=== PATIENT | male | born 1970 | race Two or more races ===

== ENCOUNTER 2021-03-03 18:24 | Emergency (ER) | payer OTHER ==
[~2021-03-03] VITALS: Ht 180.3 cm; Wt 95.3 kg
[2021-03-03] MEDS ORDERED: COZAAR25 MG PO (18:35)
[2021-03-03] MEDS ORDERED: LIPITOR40 M1 PO (18:36)
== END 2021-03-03 22:42 | disposition home or self-care (01) ==
LOC: ER 18:24
DX: R11.10 Vomiting, unspecified (principal)

== ENCOUNTER 2024-04-06 13:58 | Emergency (ER) | payer OTHER ==
[~2024-04-06] VITALS: Ht 180.3 cm; Wt 94.8 kg
[~2024-04-06 13:58] MED LIST: COZAAR25 MG PO; LIPITOR40 M1 PO
[2024-04-06] MEDS ORDERED: LOSARTAN POTAS100 MG PO (14:02)
[2024-04-06] MEDS ORDERED: LIPITOR40 M1 PO (14:03)
[2024-04-06] MEDS ORDERED: DEXAMETHASONE SODIUM PHOSPHATE 4 MG/ML VIAL IV STA (15:12)
[2024-04-06] MEDS ORDERED: DEXAMETHASONE SODIUM PHOSPHATE 4 MG/ML VIAL ONE (15:29)
[2024-04-06 15:59] LABS: HEMATOCRIT 38.7 % (39.0-48.0); HEMOGLOBIN 13.7 g/dL (13-16.00); MEAN CELL VOLUME 93.2 fL (80.0-100.00); MEAN CORPUSCULAR HGB CONC 35.4 g/dl (32.0-36.0); PLATELET COUNT 265 K/uL (150-450); RED BLOOD COUNT 4.15 M/uL (4.00-6.00); RED CELL DISTRIBUTION WIDTH 13.4 % (11.5-14.5)
[2024-04-06 16:12] LABS: PH,URINE 6.5 (5.0-8.0); URINE APPEARANCE Turbid; URINE BILIRRUBIN Negative (NEGATIVE); URINE BLOOD Negative; URINE COLOR Yellow; URINE GLUCOSE Negative (NEGATIVE); URINE KETONE Trace (NEGATIVE); URINE LEUKOCYTE Negative; URINE NITRATE Negative; URINE PROTEIN Negative (NEGATIVE); URINE UROBILINOGEN 0.2 E.U./dl
[2024-04-06 16:15] LABS: URINE RBC 2.4 uL (0.0-20.8)
[2024-04-06 16:17] LABS: URINE EPITHELIAL CELLS 0.6 uL (0.0-38.8); URINE WBC 1.6 uL (0.0-23.2)
[2024-04-06 17:03] LABS: BILIRUBIN TOTAL 0.64 mg/dL (0.3-1.2); BILIRUBIN,CONJUGATED 0.16 mg/dL (0.0-0.2); BILIRUBIN,UNCONJUGATED 0.48 mg/dL (0.0-0.6); CALCIUM 9.2 mg/dL (8.5-10.1); CREATININE SERUM 1.15 mg/dL (0.70-1.30); GFR 65.78; POTASSIUM 4.09 mEq/L (3.5-5.1); TOTAL PROTEIN 7.1 gm/dL (6.4-8.2)
== END 2024-04-06 19:55 | disposition home or self-care (01) ==
LOC: ER 13:59
PROVIDERS: General Practice
DX: R53.1 Weakness (principal); I10 Essential (primary) hypertension